=== PATIENT | male | born 1985 | race Two or more races ===

== ENCOUNTER → 2025-05-23 | Emergency (ER) | payer OTHER ==
[~2025-05-23] VITALS: Ht 170.2 cm; Wt 104.3 kg
[~2025-05-23] MED LIST: NEURONTIN300 MG PO; VALACYCLOVIR1000 MG PO
== END | disposition home or self-care (01) ==
LOC: ER 17:50
DX: B02.9 Zoster without complications (principal); R21 Rash and other nonspecific skin eruption